=== PATIENT | male | born 1990 ===

== ENCOUNTER 2016-07-27 23:06 | Emergency (ER) | payer MEDICAID, OTHER ==
[~2016-07-27] VITALS: Ht 185.4 cm; Wt 94.5 kg
[~2016-07-27 23:06] MED LIST: BENZ1TAB7 PO; CLON1PAT2 TOPICAL; HAL5 PO; QUET300T PO
[2016-07-27 23:23] VITALS: BP 141/78; PULSE 118; RESP 18; O2SAT 98
--- NOTE | 2016-07-28 00:25 | ED.REPORT ---
HPI-General Illness Date of Service Jul 28, 2016 ED Provider: Tyler Mar MD Pt is a 26 y.o. male with a hx of polysubstance abuse, bipolar disorder, PTSD, anxiety, and SI who presents to the ED seeking detox from polysubstance abuse. Pt reports that he has been 'clean' for 2 days. He reports associated hallucinations. Upon examination pt is agitated and uncooperative with the exam. Pt ultimately left AMA during interview and examination. Nursing Notes Stated Complaint: DETOX Chief Complaint: Substance Abuse Nursing Notes Reviewed: Yes Allergies: Coded Allergies: valproic acid (Verified Allergy, Severe, liver problems, 07/27/16) Scheduled Benztropine Mesylate (Benztropine Mesylate) 1 Mg Tablet 0.5 MG PO BID Benztropine Mesylate (Benztropine Mesylate) 1 Mg Tablet 1 MG PO BID Clonidine 0.2 mg/day Patch (Catapres TTS-2) 1 Each Patch 1 PATCH TOPICAL Q7D Haloperidol (Haloperidol) 5 Mg Tablet 15 MG PO HS Quetiapine Fumarate (Seroquel) 300 Mg Tablet 300 MG PO HS General Time Seen by MD: 00:25 Chief Complaint Other (Substance abuse) Hx Obtained From: Patient Arrived By: Walk-in Sudden in Onset?: Yes Onset Occurred: 2 days ago Symptom Duration: Since onset Severity: Current: No pain currently Past Medical History Past Medical History Notes: Patient has been inpatient multiple times, leaves AMA has a counselor and psychiatrist in [place] always claims to be using methamphetamine, but tox screen is never positive. Past Medical History Bipolar disorder PTSD Anxiety Suicidal ideation Reports: Mental illness Past Surgical History Denies Family History non-contributory Smoking History Current Every Day Smoker Social History from [place] Alcohol Use: 3-5 per day Drug Use: In recovery, Cocaine, Meth, THC Other Social History: Good social support, Homeless Ambulatory Status Independent Review of Systems Substance abuse Full Review of Systems Psychiatric: Reports: Agitation, Hallucinations, auditory, Hallucinations, visual Complete sys rev & neg: except as marked. Physical Exam Vital Signs Vital Signs Date Time Temp Pulse Resp B/P Pulse Ox O2 Delivery O2 Flow Rate FiO2 07/27/16 23:23 36.6 118 18 141/78 98 Room Air Initial VS: Reviewed Abdomen / GI: No distention Extremities: Vascular intact, Neuro intact Skin: Warm, Dry, No cyanosis Neurologic: Alert, Oriented, Nonfocal General/Constitutional: Awake, Alert, No acute distress, Well appearing, Well developed, Well nourished, Not toxic appearing Behavior: Positive: Agitated, Uncooperative (Refuses physical exam) Head / Eyes: Atraumatic, Normocephalic Respiratory / Chest: Atraumatic, No respiratory distress Cardiovascular: Peripheral circulation NL Heart Rate / Rhythm: Positive: Tachycardia Abnormal Mood/Affect: Positive: Inappropriate, Pressured speech Interpretation & Diagnostics Drug Screen / Level Interp Urine positive benzo Re-Eval/Medical Decision Med Decision/Clinical Course 26-year-old with bipolar mood disorder and substance abuse presents wanting detox and crisis. There is no bed there tonight. He became irate upon learning this and began cursing staff and was escorted out of the department. He has no suicidality or homicidality or other specific cause to detain him. Source of Hx: Old records Time of Eval: 00:27 Re-Evaluation/Progress Note: Pt refuses physical exam, is uncooperative, agitated, and ultimately leaves AMA. Discharge & Departure Shift Change Sign-Out Response to Therapy: Unchanged Primary Impression: Acute situational disturbance Additional Impressions: Substance abuse Methamphetamine abuse Disposition: AGAINST MEDICAL ADVICE (0030) Discharge Condition All VS Reviewed: Yes Condition: Stable Referrals: JOSE ALBERTO SHARMA (PCP) Steve Attestation Portions of this note were transcribed by Miguel Monge. I, Dr. Mar personally performed the history, physical exam and medical decision-making; I reviewed and confirmed the accuracy of the information in the transcribed note. Signed by: Steve Morgan, 07/28/16 and 0231. copies to: JOSE ALBERTO SHARMA Christopher W MD Jul 28, 2016 00:25 MIGUEL MONGE Jul 28, 2016 02:21
== END 2016-07-28 00:32 | disposition left against medical advice (07) ==
LOC: SED 23:06
DX: F43.0 Acute stress reaction (principal); F19.10 Other psychoactive substance abuse, uncomplicated; F15.10 Other stimulant abuse, uncomplicated; F17.200 Nicotine dependence, unspecified, uncomplicated; Z88.8 Allergy status to other drugs, medicaments and biological substances

== ENCOUNTER 2016-08-01 16:49 | Emergency (ER) | payer MEDICAID, OTHER ==
[2016-08-01 17:12] VITALS: BP 119/70; PULSE 99; RESP 16; O2SAT 99
--- NOTE | 2016-08-01 17:26 | ED.REPORT ---
HPI-General Illness Date of Service Aug 01, 2016 ED Provider: Doc,Ed MD A 26 year old homeless male with a history of bipolar disorder, PTSD, anxiety, suicidal ideation, polysubstance abuse, and multiple ED visits presents to the ED with teeth pain onset this morning while eating almonds. He also reports rib pain onset a couple of weeks ago. He was seen this morning at [facility] and last night at [facility] in [place] but denies any definitive problems that have arisen since then. His regular psychiatrist is at [place] but he has no upcoming appointment. Nursing Notes Stated Complaint: MENTAL HEALTH Chief Complaint: Psychiatric Complaint Nursing Notes Reviewed: Yes Allergies: Coded Allergies: valproic acid (Verified Allergy, Severe, liver problems, 07/27/16) Scheduled Benztropine Mesylate (Benztropine Mesylate) 1 Mg Tablet 0.5 MG PO BID Benztropine Mesylate (Benztropine Mesylate) 1 Mg Tablet 1 MG PO BID Clonidine 0.2 mg/day Patch (Catapres TTS-2) 1 Each Patch 1 PATCH TOPICAL Q7D Haloperidol (Haloperidol) 5 Mg Tablet 15 MG PO HS Quetiapine Fumarate (Seroquel) 300 Mg Tablet 300 MG PO HS General Time Seen by MD: 17:26 Chief Complaint Other (Teeth Pain) Hx Obtained From: Patient Arrived By: Walk-in Sudden in Onset?: Yes Onset Occurred: 5 - 8 hours ago Symptom Duration: Since onset Location: : Chest (Rib): Face (Teeth) Quality: Painful Severity: Current: Moderate Severity: Maximum: Moderate Associated with: Reports: Chest pain (Ribs), Denies: Fever Pertinent Negative: Relieved by nothing Context Related History: Reports Drug dependence, Reports Psychiatric history Recent Healthcare: Recent doctor visit Similar Sx Previous: Yes Past Medical History Past Medical History Notes: Patient has been inpatient multiple times, leaves AMA has a counselor and psychiatrist in [place] always claims to be using methamphetamine, but tox screen is never positive. Past Medical History Bipolar disorder PTSD Anxiety Suicidal ideation Reports: Mental illness Past Surgical History Denies Family History non-contributory Smoking History Current Every Day Smoker Social History from [place] Alcohol Use: 3-5 per day Drug Use: In recovery, Cocaine, Meth, THC Other Social History: Good social support, Homeless Ambulatory Status Independent Review of Systems Full Review of Systems Constitutional: Denies: Fever Ears / Nose / Throat: Reports: Toothache Respiratory: Denies: Non-productive cough, Shortness of breath Cardiovascular: Reports: Chest pain (Ribs) GI: Denies: Vomiting Complete sys rev & neg: except as marked. Physical Exam Vital Signs Vital Signs Date Time Temp Pulse Resp B/P Pulse Ox O2 Delivery O2 Flow Rate FiO2 08/01/16 18:00 36.8 99 16 119/70 99 Room Air 08/01/16 17:12 36.8 99 16 119/70 99 Room Air Initial VS: Reviewed Head / Eyes: Atraumatic, Normocephalic ENT: Conjunctiva normal, No scleral icterus Neck: Supple, Full range of motion Cardiovascular: Regular rate & rhythm, Heart sounds normal Skin: Warm, Dry, No cyanosis Neurologic: Alert, Oriented, Nonfocal General/Constitutional: Awake, Alert ENT: Airway patent, Mucous membranes moist Dental / Gums: Negative: Dental abscess Poor dentition with previous dental work done Respiratory / Chest: Breath sounds NL, Breath sounds = bilat, No respiratory distress, No chest tenderness Psychiatric: Affect NL, Mood NL, Not suicidal, Not homicidal Re-Eval/Medical Decision Source of Hx: Old records Time of Eval: 17:51 Patient Status: Condition improved Re-Evaluation/Progress Note: Discussed with patient diagnosis and plan for discharge. Follow-up and return to the ER instructions given. Patient refuses discharge and security was called. Consultation : Call Returned at: 15:45 Hair And Makeup Designer: Agrees with eval, Agrees with plan Note: Crisis Respite: Patient is on the Do Not Admit list for [facility]. Counseled Regarding: Diagnosis, Need for follow-up, When/why to return to ED Discharge & Departure Primary Impression: Substance abuse Additional Impressions: Rib pain Tooth pain Disposition: Home Discharge Condition All VS Reviewed: Yes Condition: Stable Patient Instructions: [facility] (ED) Additional Instructions: Take naproxen 500 mg twice daily for your rib pain as needed. I recommend you follow up with dentist as she were able to help with her dental health. Crisis respite has you on a conditional admit list and will not accept you today. You would need to call tomorrow morning to see if they have available. [phone] [facility] will have to initiate a transfer of care to [facility] if you desire treatment there. Call them tomorrow to help arrange this. Referrals: JOSE ALBERTO SHARMA (PCP) Steve Attestation Portions of this note were transcribed by Nicolle Ortiz. I, Dr. Grider, personally performed the history, physical exam, and medical decision-making; I reviewed and confirmed the accuracy of the information in the transcribed note. Signed by: Steve Powell, 08/01/2016, 17:54 copies to: [facility] Marc Donnelly MD Aug 01, 2016 17:26 NICOLLE ORTIZ Aug 01, 2016 17:41
[2016-08-01 18:00] VITALS: BP 119/70; PULSE 99; RESP 16; O2SAT 99
--- NOTE | 2016-08-01 18:17 | NUR ---
ED PLASTER BLOCK LAYER note: D/A: PT is a 26 year old male with a history of methamphetamine abuse and unspecified bipolar disorder. Pt presents to the ED initially requested mental health evaluation, however to ED MD he requests medical assistance for tooth pain. NABILA report reveals that pt was seen in [facility] ED on 07/31 and [facility] ED on 08/01 at 0900 and subsequently presents to our ED later that day. Pt has no mental health complaints to ED MD aside from setting up an appointment with [facility]. PLASTER BLOCK LAYER attempted to complete this however VOA reveals that pt is followed by [facility], which requires a transfer of service to occur from his dog catcher. Pt also requests to transfer to crisis respite, however ED MD contacted them and pt is on their conditional admit list, requiring pt to contact them tomorrow morning. PLASTER BLOCK LAYER requested to provide pt with his follow up information at discharge. PLASTER BLOCK LAYER met with pt at bedside with RN to provide discharge instruction. Pt disputes our inability to provide him with follow up. Pt then requests usp at a facility in [place] that PLASTER BLOCK LAYER is unfamiliar with and transportation to [place] to be provided by the hospital. When PLASTER BLOCK LAYER informed pt that he would have to arrange his own transportation as he had been doing for the last 2 days between [facility] and [facility] pt then began to refuse to discharge from the hospital. Security was called who were able to easily escort pt from hospital property. P: Pt presents to the ED with a multitude of complaints. Pt has been provided treatment and referred to his own outpatient provider. Pt's disapproval of his discharge and attempt to avoid discharge, combined with his current homelessness and multiple recent ED visits throughout [place] appears most likely that he is attempting to use psychiatric symptoms to obtain secondary gain, which in this case is housing. Pt certainly has underlying psychiatric illness but his primary goal today appears to be to gain housing. ED MD aware and in agreement with plan to discharge to homelessness and recommendation to follow up with his outpatient providers. ED MD has also provided non-narcotic pain medication for pt's dental pain. JAXSON Stern
== END 2016-08-01 18:06 | disposition home or self-care (01) ==
LOC: SED 16:49
DX: F19.10 Other psychoactive substance abuse, uncomplicated (principal); R07.81 Pleurodynia; K08.89 Other specified disorders of teeth and supporting structures; F31.9 Bipolar disorder, unspecified; F17.200 Nicotine dependence, unspecified, uncomplicated; Z59.0 Homelessness; Z88.8 Allergy status to other drugs, medicaments and biological substances